=== PATIENT | female | born 1940 | race African-American/Black ===

== ENCOUNTER 2018-06-03 04:39 | Inpatient (IN) | payer MEDICARE, MEDICAID ==
[~2018-06-03] VITALS: Ht 167.6 cm; Wt 49.9 kg
[~2018-06-03 04:39] MED LIST: ASA; ATEN-42; CARB100C4 PO; COLC0.6T66; ESOM40CA; FURO40TA5; LOSA50TA20; METO2.5T14; POTA8CAP10; ROSU10TA; TRAM50TA3 PO; TRAV2.5D EACHEYE; ZET10
[2018-06-03 05:20] LABS: BASOPHILS % 1.6 % (0.0-2.0); EOSINOPHILS % 5.3 % (0.0-5.0); HEMATOCRIT. 42.8 % (36.0-48.0); HEMOGLOBIN. 13.1 g/dL (12.0-16.0); LYMPHOCYTES % 32.5 % (20.0-50.0); MEAN CORPUSCULAR HEMOGLOBIN 22.6 pg (28.0-32.0); MEAN CORPUSCULAR VOLUME 73.6 fL (81.0-99.0); MEAN PLATELET VOLUME 9.1 fl (7.4-10.4); NEUTROPHILS % 46.6 % (40.0-76.0); PLATELET 193 x1000/uL (130-400); RED BLOOD CELL COUNT 5.82 mill/uL (4.2-5.4); RED CELL DISTRIBUTION WIDTH 16.6 % (11.6-14.6)
[2018-06-03 05:23] LABS: CHLORIDE 109 mEq/L (98-107)
[2018-06-03 05:24] LABS: INR 1.1; PROTHROMBIN TIME 11.1 sec (9.1-11.1)
[2018-06-03] MEDS ORDERED: FUROSEMIDE 40MG/4ML VIAL IVP ONE (05:45)
[2018-06-03] MEDS ORDERED: NITROGLYCERIN OINT 1GM/INCH UDPKT TD ONE (05:45)
[2018-06-03] MEDS ORDERED: NITROGLYCERIN 0.4MG TABLET SL SL PRN (11:45)
[2018-06-03] MEDS ORDERED: ACETAMINOPHEN 325MG TABLET PO PRN (11:45)
[2018-06-03] MEDS ORDERED: TRAMADOL 50MG TABLET PO PRN (11:45)
[2018-06-03] MEDS ORDERED: DOCUSATE SODIUM 100MG CAPSULE PO PRN (11:45)
[2018-06-03] MEDS ORDERED: CLONIDINE 0.1MG TABLET PO PRN (11:45)
[2018-06-03] MEDS ORDERED: MAGNESIUM/ALUMINUM HYDROXIDE/SIMETHICONE 30ML UDC PO PRN (11:45)
[2018-06-03] MEDS ORDERED: IPRATROPIUM/ALBUTEROL 0.5-3(2.5)MG/3ML NEB INH PRN (11:45)
[2018-06-03] MEDS ORDERED: GUAIFENESIN 200MG/10ML SUGAR FREE UDC PO PRN (11:45)
[2018-06-03] MEDS ORDERED: ONDANSETRON HCL 4MG/2ML INJ IV PRN (11:45)
[2018-06-03] MEDS ORDERED: MORPHINE SULFATE 4 MG/ML CPJ (NOT FOR IM USE) IV PRN (12:15)
[2018-06-03] MEDS ORDERED: REGADENOSON 0.4 MG/5 ML IV ONE (12:15)
[2018-06-03] MEDS: ASPIRIN 325MG EC TABLET PO SCH (12:30)
[2018-06-03] MEDS: ENOXAPARIN 40MG/0.4ML SYR SUBCUT SCH (12:30)
[2018-06-03] MEDS: FAMOTIDINE 20MG TABLET PO SCH (12:30)
[2018-06-03] MEDS: CARVEDILOL 3.125 MG TABLET PO SCH (12:30)
[2018-06-03] MEDS: GUAIFENESIN/DM 600MG/30MG ER TAB 12HR PO SCH (12:30)
[2018-06-03] MEDS: LISINOPRIL 20MG TABLET PO SCH (12:30)
[2018-06-03] MEDS: NITROGLYCERIN OINT 1GM/INCH UDPKT TD SCH (14:42)
[2018-06-03 17:05] LABS: CREATINE KINASE MB FRACTION 4.3 ng/mL (0.5-3.6)
[2018-06-03] MEDS: FUROSEMIDE 40MG/4ML VIAL IVP SCH (18:56)
[2018-06-03] MEDS ORDERED: FAMOTIDINE 20MG TABLET PO SCH (21:00)
[2018-06-03] MEDS ORDERED: ZOLPIDEM TARTRATE 5MG TABLET PO PRN (21:00)
[2018-06-04 04:11] VITALS: BP 126/78
[2018-06-04 04:20] VITALS: BP 126/78
[2018-06-04 04:27] LABS: BASOPHILS % 1.3 % (0.0-2.0); EOSINOPHILS % 4.6 % (0.0-5.0); HEMATOCRIT. 42.9 % (36.0-48.0); HEMOGLOBIN. 13.6 g/dL (12.0-16.0); LYMPHOCYTES % 22.4 % (20.0-50.0); MEAN CORPUSCULAR HEMOGLOBIN 22.9 pg (28.0-32.0); MEAN CORPUSCULAR VOLUME 72.5 fL (81.0-99.0); MEAN PLATELET VOLUME 9.6 fl (7.4-10.4); MONOCYTES % 14.9 % (2.0-8.0); NEUTROPHILS % 56.8 % (40.0-76.0); PLATELET 202 x1000/uL (130-400); RED BLOOD CELL COUNT 5.91 mill/uL (4.2-5.4); RED CELL DISTRIBUTION WIDTH 16.1 % (11.6-14.6)
[2018-06-04 04:33] LABS: CHLORIDE 104 mEq/L (98-107)
[2018-06-04] MEDS ORDERED: ASPI-1158 PO (05:56)
[2018-06-04] MEDS: FUROSEMIDE 40MG/4ML VIAL IVP SCH ×2 (06:33→17:29)
[2018-06-04] MEDS: NITROGLYCERIN OINT 1GM/INCH UDPKT TD SCH (06:34)
[2018-06-04] MEDS: SPIRONOLACTONE 25MG TABLET PO SCH ×2 (06:37→17:29)
[2018-06-04 08:12] VITALS: BP 136/81
[2018-06-04] MEDS: ENOXAPARIN 40MG/0.4ML SYR SUBCUT SCH (08:56)
[2018-06-04] MEDS: ASPIRIN 325MG EC TABLET PO SCH (08:57)
[2018-06-04] MEDS: LISINOPRIL 20MG TABLET PO SCH ×2 (08:57→21:00)
[2018-06-04] MEDS: GUAIFENESIN/DM 600MG/30MG ER TAB 12HR PO SCH ×2 (08:57→21:02)
[2018-06-04] MEDS: FAMOTIDINE 20MG TABLET PO SCH (08:57)
[2018-06-04] MEDS: CARVEDILOL 3.125 MG TABLET PO SCH (08:58)
[2018-06-04] MEDS ORDERED: REGADENOSON 0.4 MG/5 ML IV ONE (11:20)
[2018-06-04 12:56] VITALS: BP 120/82
[2018-06-04] MEDS ORDERED: POTASSIUM CHLORIDE 20MEQ TABLET SR PO SCH (14:00)
[2018-06-04 16:15] VITALS: BP 120/64
[2018-06-04 19:39] VITALS: BP 94/54
[2018-06-04] MEDS: CARVEDILOL 6.25 MG TABLET PO SCH (21:00)
[2018-06-04] MEDS: ATORVASTATIN CALCIUM 20MG TABLET PO SCH (21:02)
[2018-06-05] VITALS: BP 128/70
[2018-06-05 04:00] VITALS: BP 121/71
[2018-06-05] MEDS: SPIRONOLACTONE 25MG TABLET PO SCH ×2 (06:06→19:42)
[2018-06-05] MEDS: FUROSEMIDE 40MG/4ML VIAL IVP SCH (06:06)
[2018-06-05 08:31] VITALS: BP 119/68
[2018-06-05] MEDS: CARVEDILOL 6.25 MG TABLET PO SCH ×2 (09:24→20:21)
[2018-06-05] MEDS: LISINOPRIL 20MG TABLET PO SCH ×2 (09:24→20:21)
[2018-06-05] MEDS: ASPIRIN 81MG EC TABLET PO SCH (09:25)
[2018-06-05] MEDS: FAMOTIDINE 20MG TABLET PO SCH (09:25)
[2018-06-05] MEDS: GUAIFENESIN/DM 600MG/30MG ER TAB 12HR PO SCH ×2 (09:27→20:21)
[2018-06-05] MEDS: ENOXAPARIN 40MG/0.4ML SYR SUBCUT SCH (09:27)
[2018-06-05 12:15] VITALS: BP 107/60
[2018-06-05] MEDS: POTASSIUM CHLORIDE 20MEQ TABLET SR PO SCH (15:21)
[2018-06-05 15:46] VITALS: BP 100/58
[2018-06-05 20:00] VITALS: BP 100/57
[2018-06-05] MEDS: FUROSEMIDE 40MG TABLET PO SCH (20:21)
[2018-06-05] MEDS: ATORVASTATIN CALCIUM 20MG TABLET PO SCH (20:21)
[2018-06-06] VITALS: BP 113/58
[2018-06-06 04:00] VITALS: BP 134/67
[2018-06-06] MEDS: SPIRONOLACTONE 25MG TABLET PO SCH (05:15)
[2018-06-06 08:00] VITALS: BP 124/67
[2018-06-06] MEDS: CARVEDILOL 6.25 MG TABLET PO SCH (09:00)
[2018-06-06] MEDS: LISINOPRIL 20MG TABLET PO SCH (09:00)
[2018-06-06] MEDS: FAMOTIDINE 20MG TABLET PO SCH (09:39)
[2018-06-06] MEDS: FUROSEMIDE 40MG TABLET PO SCH (09:39)
[2018-06-06] MEDS: ASPIRIN 81MG EC TABLET PO SCH (09:39)
[2018-06-06] MEDS: POTASSIUM CHLORIDE 20MEQ TABLET SR PO SCH (09:39)
[2018-06-06] MEDS: GUAIFENESIN/DM 600MG/30MG ER TAB 12HR PO SCH (09:39)
[2018-06-06] MEDS: ENOXAPARIN 40MG/0.4ML SYR SUBCUT SCH (09:40)
[2018-06-06 11:14] VITALS: BP 124/67
[2018-06-06 12:00] VITALS: BP 125/75
== END 2018-06-06 14:15 | disposition home health service (06) | DRG 292 ==
LOC: ER 04:39 → 6WST 05:56 → EDBEDREQTM 05:58 → EDBEDREQ 05:58 → SUPCPDRO 11:35 → ENRESERV 06-04 02:41 → CANRESERV 06-04 02:41 → ENRESERV 06-04 02:43
PROVIDERS: ADMIT Internal Medicine; ATTEND Internal Medicine
DX: I11.0 Hypertensive heart disease with heart failure (principal); I24.9 Acute ischemic heart disease, unspecified; I25.110 Atherosclerotic heart disease of native coronary artery with unstable angina pectoris; I50.43 Acute on chronic combined systolic (congestive) and diastolic (congestive) heart failure; E78.00 Pure hypercholesterolemia, unspecified; I44.7 Left bundle-branch block, unspecified; J44.9 Chronic obstructive pulmonary disease, unspecified; Z95.1 Presence of aortocoronary bypass graft; I25.2 Old myocardial infarction; Z98.41 Cataract extraction status, right eye; Z98.42 Cataract extraction status, left eye; Z90.710 Acquired absence of both cervix and uterus; Z88.1 Allergy status to other antibiotic agents
CPT/HCPCS: 36415; 71045; 78452; 80048; 80061; 82550; 82553; 83036; 83880; 84484; 86301; 93005; 93017; 93306; 93970; 96361; 96374; 96375; 97116; 97162; 97166; 99285; A9500; J1650; J1940; J2405; J2785

== ENCOUNTER → 2018-12-28 | Outpatient (CLI) | payer MEDICARE, MEDICAID ==
[~2018-12-28] MED LIST changes: +ASPI-1158 PO; +COR6 PO; +CRES10; +CYCL30DR EACHEYE; +EZET10TA13; -LOSA50TA20; +LOSA50TA41; +POTA20TA82 PO; -POTA8CAP10; +POTA8CAP20; +RANO500T6 PO; -ROSU10TA; +SACU1TAB MT; -ZET10
== END | disposition home or self-care (01) ==
LOC: MAMMO 09:05
PROVIDERS: ATTEND Internal Medicine
DX: Z12.31 Encounter for screening mammogram for malignant neoplasm of breast (principal)
CPT/HCPCS: 77067

== ENCOUNTER 2019-01-11 06:07 | Inpatient (IN) | payer MEDICARE, MEDICAID ==
[~2019-01-11] VITALS: Ht 167.6 cm; Wt 54.5 kg
[~2019-01-11 06:07] MED LIST changes: -COR6 PO; -CYCL30DR EACHEYE; -POTA20TA82 PO; -RANO500T6 PO; -SACU1TAB MT
[2019-01-11 11:20] LABS: HEMATOCRIT. 39.8 % (36.0-48.0); HEMOGLOBIN. 12.6 g/dL (12.0-16.0); MEAN CORPUSCULAR HEMOGLOBIN 23.6 pg (28.0-32.0); MEAN CORPUSCULAR VOLUME 74.3 fL (81.0-99.0); MEAN PLATELET VOLUME 8.9 fl (7.4-10.4); PLATELET 224 x1000/uL (130-400); RED BLOOD CELL COUNT 5.35 mill/uL (4.2-5.4)
[2019-01-11] MEDS ORDERED: POTA20TA82 PO (11:22)
[2019-01-11] MEDS ORDERED: RANO500T6 PO (11:22)
[2019-01-11] MEDS ORDERED: CYCL30DR EACHEYE (11:22)
[2019-01-11] MEDS ORDERED: COR6 PO (11:25)
[2019-01-11 11:28] LABS: PARTIAL THROMBOPLASTIN TIME 29.4 sec (23.4-31.0); PROTHROMBIN TIME 10.6 sec (9.6-11.0)
[2019-01-11] MEDS ORDERED: SODIUM CHLORIDE 0.9% 500 ML IV ONE (11:30)
[2019-01-11 11:31] LABS: CHLORIDE 107 mEq/L (98-107)
[2019-01-11] MEDS ORDERED: IODIXANOL 320MG/ML 100 ML BOTTLE IV ONE (12:09)
[2019-01-11] MEDS ORDERED: GENTAMICIN SULF 40MG/ML 2ML VIAL ONE (12:09)
[2019-01-11 12:10] LABS: PLATELET ESTIMATE NORMAL
[2019-01-11] MEDS ORDERED: GENTAMICIN/NS IRRIGATION 500 ML IR ONE (12:10)
[2019-01-11] MEDS ORDERED: LIDOCAINE HCL 1% 20ML VIAL (Pyxis) INJ ONE (12:10)
[2019-01-11] MEDS ORDERED: SODIUM CHLORIDE 0.9% 1,000 ML IV ONE (15:32)
[2019-01-11] MEDS ORDERED: HYDROMORPHONE HCL/PF 2MG/ML CPJ IV PRN (15:45)
[2019-01-11] MEDS ORDERED: MORPHINE SULFATE 2 MG/ML CPJ (NOT FOR IM USE) IV PRN (15:45)
[2019-01-11] MEDS ORDERED: ONDANSETRON HCL 4MG/2ML INJ IV PRN (15:45)
[2019-01-11] MEDS ORDERED: MEPERIDINE HCL/PF 25MG/ML CPJ IV PRN ×2 (15:45)
[2019-01-11 17:00] VITALS: BP_SYST 134; BP_SYST 137; BP_DIAS 58; BP_DIAS 65
[2019-01-11] MEDS ORDERED: SACU1TAB MT (17:48)
[2019-01-11 18:00] VITALS: BP 135/72
[2019-01-11 20:00] VITALS: BP 143/84
[2019-01-11] MEDS ORDERED: PNEUMOCOCCAL 23-VAL P-SAC VAC 0.5 ML IM ONE (20:30)
[2019-01-11 21:00] VITALS: BP 150/73
[2019-01-11 22:00] VITALS: BP 141/60
[2019-01-11 23:00] VITALS: BP 158/75
[2019-01-12] VITALS (14 sets, daily range): BP systolic 127–150; BP diastolic 60–82
[2019-01-12 06:44] LABS: BASOPHILS % 0.6 % (0.0-2.0); HEMATOCRIT. 40.2 % (36.0-48.0); HEMOGLOBIN. 12.7 g/dL (12.0-16.0); LYMPHOCYTES % 12.8 % (20.0-50.0); MEAN CORPUSCULAR HEMOGLOBIN 23.8 pg (28.0-32.0); MEAN CORPUSCULAR VOLUME 75.3 fL (81.0-99.0); MEAN PLATELET VOLUME 9.3 fl (7.4-10.4); MONOCYTES % 12.8 % (2.0-8.0); NEUTROPHILS % 72.8 % (40.0-76.0); PLATELET 205 x1000/uL (130-400); RED BLOOD CELL COUNT 5.34 mill/uL (4.2-5.4); RED CELL DISTRIBUTION WIDTH 17.7 % (11.6-14.6)
[2019-01-12 06:54] LABS: CHLORIDE 108 mEq/L (98-107)
[2019-01-12] MEDS: ASPIRIN 81MG EC TABLET PO SCH (09:29)
[2019-01-12] MEDS: POTASSIUM CHLORIDE 20MEQ TABLET SR PO SCH (09:29)
[2019-01-12] MEDS: CARVEDILOL 6.25 MG TABLET PO SCH (09:29)
[2019-01-12] MEDS: RANOLAZINE 500 MG TAB.SR.12H PO SCH (09:30)
[2019-01-12] MEDS: FUROSEMIDE 40MG TABLET PO SCH (09:30)
[2019-01-12] MEDS: HYDROCODONE/ACETAMINOPHEN 5/325MG TABLET PO PRN (09:31)
[2019-01-12] MEDS: CEFAZOLIN 1000MG PREMIX 50 ML IV SCH (23:06)
[2019-01-13 02:00] VITALS: BP 148/77
[2019-01-13 03:39] VITALS: BP 147/68
[2019-01-13 05:32] VITALS: BP 156/75
[2019-01-13] MEDS: CEFAZOLIN 1000MG PREMIX 50 ML IV SCH (06:06)
[2019-01-13] MEDS: HYDROCODONE/ACETAMINOPHEN 5/325MG TABLET PO PRN (06:15)
[2019-01-13 06:22] VITALS: BP 149/69
[2019-01-13 08:09] VITALS: BP 147/95
[2019-01-13] MEDS: FUROSEMIDE 40MG TABLET PO SCH (08:11)
[2019-01-13] MEDS: RANOLAZINE 500 MG TAB.SR.12H PO SCH (08:11)
[2019-01-13] MEDS: POTASSIUM CHLORIDE 20MEQ TABLET SR PO SCH (08:12)
[2019-01-13] MEDS: ASPIRIN 81MG EC TABLET PO SCH (08:12)
[2019-01-13] MEDS: CARVEDILOL 6.25 MG TABLET PO SCH (08:12)
[2019-01-13 08:52] VITALS: BP 154/84
== END 2019-01-13 09:30 | disposition home or self-care (01) | DRG 225 ==
LOC: CCL 06:07 → 3WST 06:08
PROVIDERS: ADMIT Internal Medicine Clinical Cardiac Electrophysiology; ATTEND Internal Medicine Clinical Cardiac Electrophysiology
PROC: B517YZA Fluoroscopy of Left Subclavian Vein using Other Contrast, Guidance (ICD-10-PCS; principal; 2019-01-11)
PROC: 0JH609Z Insertion of Cardiac Resynchronization Defibrillator Pulse Generator into Chest Subcutaneous Tissue and Fascia, Open Approach (ICD-10-PCS; 2019-01-11)
PROC: 02HK3KZ Insertion of Defibrillator Lead into Right Ventricle, Percutaneous Approach (ICD-10-PCS; 2019-01-11)
PROC: 4A023N7 Measurement of Cardiac Sampling and Pressure, Left Heart, Percutaneous Approach (ICD-10-PCS; 2019-01-11)
PROC: 02H63KZ Insertion of Defibrillator Lead into Right Atrium, Percutaneous Approach (ICD-10-PCS; 2019-01-11)
PROC: B211YZZ Fluoroscopy of Multiple Coronary Arteries using Other Contrast (ICD-10-PCS; 2019-01-11)
DX: I44.7 Left bundle-branch block, unspecified (principal); I50.22 Chronic systolic (congestive) heart failure; I25.5 Ischemic cardiomyopathy; E78.5 Hyperlipidemia, unspecified; I11.0 Hypertensive heart disease with heart failure; I25.10 Atherosclerotic heart disease of native coronary artery without angina pectoris; M19.90 Unspecified osteoarthritis, unspecified site; I25.2 Old myocardial infarction; Z86.73 Personal history of transient ischemic attack (TIA), and cerebral infarction without residual deficits
CPT/HCPCS: 33225; 33249; 36415; 71045; 75820; 80048; 90732; 93005; 93451; 93641; A4565; C1758; C1769; C1882; C1887; C1892; C1893; C1898; C1899; C1900; J0330; J0690; J1580; J1644; J2250; J2405; J2704; J2710; J2765; J3490; J7040; Q9967

== ENCOUNTER 2020-07-15 15:29 | Inpatient (IN) | payer MEDICARE, MEDICAID ==
[~2020-07-15] VITALS: Ht 167.6 cm; Wt 63.5 kg
[~2020-07-15 15:29] MED LIST changes: -ASA; -ASPI-1158 PO; +ASPI-1406 PO; -ATEN-42; -CARB100C4 PO; -COLC0.6T66; +COR6 PO; -CRES10; +CYCL30DR EACHEYE; -ESOM40CA; -EZET10TA13; -LOSA50TA41; -METO2.5T14; +POTA20TA82 PO; -POTA8CAP20; +RANO500T6 PO; +SACU1TAB MT
[2020-07-15] MEDS ORDERED: ONDANSETRON HCL 4MG/2ML INJ IV ONE (17:00)
[2020-07-15] MEDS ORDERED: MORPHINE SULFATE 4 MG/ML CPJ (NOT FOR IM USE) IV ONE (17:00)
[2020-07-15 17:24] LABS: BASOPHILS % 0.5 % (0.0-2.0); EOSINOPHILS % 2.5 % (0.0-5.0); HEMATOCRIT. 40.9 % (36.0-48.0); HEMOGLOBIN. 12.9 g/dL (12.0-16.0); MEAN CORPUSCULAR HEMOGLOBIN 23.8 pg (28.0-32.0); MEAN CORPUSCULAR VOLUME 75.2 fL (81.0-99.0); MEAN PLATELET VOLUME 8.7 fl (7.4-10.4); MONOCYTES % 10.3 % (2.0-8.0); NEUTROPHILS % 69.7 % (40.0-76.0); PLATELET 178 x1000/uL (130-400); RED BLOOD CELL COUNT 5.45 mill/uL (4.2-5.4)
[2020-07-15 17:34] LABS: CHLORIDE 102 mEq/L (98-107)
[2020-07-15 18:10] LABS: INR 1.1; PROTHROMBIN TIME 11.9 sec (9.6-11.0)
[2020-07-15] MEDS ORDERED: MORPHINE SULFATE 2 MG/ML CPJ (NOT FOR IM USE) IV NR (20:15)
[2020-07-15 20:42] LABS: CLARITY URINE CLEAR (CLEAR); COLOR URINE DARK YELLOW (YELLOW); KETONES URINE 2+ (NEGATIVE); LEUKOCYTE ESTERASE URINE NEGATIVE (NEGATIVE); NITRITE URINE NEGATIVE (NEGATIVE); OCCULT BLOOD URINE NEGATIVE (NEGATIVE); PH URINE 5.5 (4.5-8.0); PROTEIN URINE TRACE (NEGATIVE); SPECIFIC GRAVITY URINE 1.016 (1.005-1.030)
[2020-07-16] VITALS (7 sets, daily range): BP systolic 92–142; BP diastolic 55–96
[2020-07-16] MEDS ORDERED: ONDANSETRON HCL 4MG/2ML INJ IV PRN
[2020-07-16] MEDS ORDERED: MORPHINE SULFATE 2 MG/ML CPJ (NOT FOR IM USE) IV PRN
[2020-07-16] MEDS: DEXT 5%/0.45% NACL KCL 20MEQ/L 1,000 ML IV SCH ×3 (03:41→21:11)
[2020-07-16] MEDS: PIPERACILLIN/TAZOBACTAM 3.375 G in DEXT 5% WATER 100 ML IV SCH ×3 (05:34→21:08)
[2020-07-16] MEDS ORDERED: PIPERACILLIN/TAZOBACTAM 3.375 G/VIAL IV SCH (06:00)
[2020-07-16] MEDS: CARVEDILOL 3.125 MG TABLET PO SCH ×2 (10:19→20:45)
[2020-07-16] MEDS: LISINOPRIL 20MG TABLET PO SCH (10:19)
[2020-07-16] MEDS: PANTOPRAZOLE SODIUM 40 MG/VIAL IV SCH (10:20)
[2020-07-16] MEDS: ASPIRIN 81MG TABLET PO SCH (10:20)
[2020-07-16] MEDS: ENOXAPARIN 40MG/0.4ML SYR SUBCUT SCH (10:21)
[2020-07-16] MEDS ORDERED: HYDROCODONE/ACETAMINOPHEN 5/325MG TABLET PO PRN (12:00)
[2020-07-17 04:00] VITALS: BP 103/53
[2020-07-17] MEDS: PIPERACILLIN/TAZOBACTAM 3.375 G in DEXT 5% WATER 100 ML IV SCH ×3 (05:19→21:23)
[2020-07-17 06:45] LABS: BASOPHILS % 0.4 % (0.0-2.0); EOSINOPHILS % 3.6 % (0.0-5.0); HEMATOCRIT. 33.9 % (36.0-48.0); HEMOGLOBIN. 10.7 g/dL (12.0-16.0); LYMPHOCYTES % 13.8 % (20.0-50.0); MEAN CORPUSCULAR HEMOGLOBIN 23.5 pg (28.0-32.0); MEAN CORPUSCULAR VOLUME 74.4 fL (81.0-99.0); MEAN PLATELET VOLUME 9.1 fl (7.4-10.4); MONOCYTES % 14.7 % (2.0-8.0); NEUTROPHILS % 67.5 % (40.0-76.0); PLATELET 193 x1000/uL (130-400); RED BLOOD CELL COUNT 4.55 mill/uL (4.2-5.4); RED CELL DISTRIBUTION WIDTH 16.7 % (11.6-14.6)
[2020-07-17 06:53] LABS: CHLORIDE 104 mEq/L (98-107)
[2020-07-17 08:00] VITALS: BP 103/58
[2020-07-17] MEDS: CARVEDILOL 3.125 MG TABLET PO SCH ×2 (09:00→21:23)
[2020-07-17] MEDS: LISINOPRIL 20MG TABLET PO SCH ×2 (09:00→09:50)
[2020-07-17] MEDS: PANTOPRAZOLE SODIUM 40 MG/VIAL IV SCH (09:42)
[2020-07-17] MEDS: ASPIRIN 81MG TABLET PO SCH (09:42)
[2020-07-17] MEDS: DEXT 5%/0.45% NACL KCL 20MEQ/L 1,000 ML IV SCH ×2 (09:42→18:21)
[2020-07-17] MEDS: ENOXAPARIN 40MG/0.4ML SYR SUBCUT SCH (09:52)
[2020-07-17 12:00] VITALS: BP 105/54
[2020-07-17 16:00] VITALS: BP 141/69
[2020-07-17 20:00] VITALS: BP 144/70
[2020-07-18] VITALS (7 sets, daily range): BP systolic 97–143; BP diastolic 50–86
[2020-07-18] MEDS: DEXT 5%/0.45% NACL KCL 20MEQ/L 1,000 ML IV SCH ×2 (02:19→15:54)
[2020-07-18] MEDS: PIPERACILLIN/TAZOBACTAM 3.375 G in DEXT 5% WATER 100 ML IV SCH ×2 (06:09→15:52)
[2020-07-18] MEDS: ASPIRIN 81MG TABLET PO SCH (09:20)
[2020-07-18] MEDS: LISINOPRIL 20MG TABLET PO SCH (09:21)
[2020-07-18] MEDS: PANTOPRAZOLE SODIUM 40 MG/VIAL IV SCH (09:21)
[2020-07-18] MEDS: CARVEDILOL 3.125 MG TABLET PO SCH (09:21)
[2020-07-18] MEDS: ENOXAPARIN 40MG/0.4ML SYR SUBCUT SCH (09:22)
[2020-07-19] MEDS ORDERED: FAMOTIDINE 20MG/2ML VIAL IV SCH (09:00)
== END 2020-07-18 20:55 | disposition home health service (06) | DRG 445 ==
LOC: ER 15:29 → 6WST 20:11 → EDBEDREQTM 20:15 → EDBEDREQ 20:15 → EDBEDREQSVC 20:15 → EDBEDREQTM 21:30 → EDBEDREQSVC 21:30 → EDBEDREQTM 21:40 → ENRESERV 22:19
PROVIDERS: ADMIT Internal Medicine; ATTEND Internal Medicine
DX: K80.00 Calculus of gallbladder with acute cholecystitis without obstruction (principal); E44.0 Moderate protein-calorie malnutrition; E87.1 Hypo-osmolality and hyponatremia; I50.22 Chronic systolic (congestive) heart failure; R18.8 Other ascites; I43 Cardiomyopathy in diseases classified elsewhere; E11.9 Type 2 diabetes mellitus without complications; R74.01 Elevation of levels of liver transaminase levels; I11.0 Hypertensive heart disease with heart failure; I25.10 Atherosclerotic heart disease of native coronary artery without angina pectoris; J44.9 Chronic obstructive pulmonary disease, unspecified; Z82.49 Family history of ischemic heart disease and other diseases of the circulatory system; Z95.810 Presence of automatic (implantable) cardiac defibrillator; Z83.3 Family history of diabetes mellitus; Z95.1 Presence of aortocoronary bypass graft; Z68.22 Body mass index [BMI] 22.0-22.9, adult; Z88.2 Allergy status to sulfonamides; Z88.8 Allergy status to other drugs, medicaments and biological substances; Z98.890 Other specified postprocedural states
CPT/HCPCS: 36415; 71045; 74176; 76705; 80048; 80053; 81003; 83605; 84145; 85025; 93005; 93306; 97116; 97162; 99285; C9113; J1650; J2270; J2405; J2543; J7060

== ENCOUNTER → 2020-10-20 | Outpatient (CLI) | payer MEDICARE, MEDICAID ==
[~2020-10-20] MED LIST changes: -TRAV2.5D EACHEYE; +TRAV2.5D9 EACHEYE
== END | disposition home or self-care (01) ==
LOC: US 07:39
PROVIDERS: ATTEND Internal Medicine
DX: K80.80 Other cholelithiasis without obstruction (principal); K82.8 Other specified diseases of gallbladder; N27.0 Small kidney, unilateral; K76.89 Other specified diseases of liver
CPT/HCPCS: 76700

== ENCOUNTER → 2020-12-25 | Outpatient (CLI) | payer MEDICARE, MEDICAID ==
[~2020-12-25] MED LIST changes: +BARIUM SULFATE 450ML ORAL SUSP ONE; +IOHEXOL-300 100 ML BOTTLE ONE
== END | disposition home or self-care (01) ==
LOC: CT 08:21
PROVIDERS: ATTEND Internal Medicine Gastroenterology
DX: K80.20 Calculus of gallbladder without cholecystitis without obstruction (principal); K44.9 Diaphragmatic hernia without obstruction or gangrene; I51.7 Cardiomegaly; K66.8 Other specified disorders of peritoneum; I70.0 Atherosclerosis of aorta; M47.819 Spondylosis without myelopathy or radiculopathy, site unspecified; K82.8 Other specified diseases of gallbladder; J94.8 Other specified pleural conditions; J98.11 Atelectasis
CPT/HCPCS: 74177; Q9967

== ENCOUNTER → 2021-01-05 | Outpatient (CLI) | payer MEDICARE, MEDICAID ==
[~2021-01-05] MED LIST changes: -BARIUM SULFATE 450ML ORAL SUSP ONE; -IOHEXOL-300 100 ML BOTTLE ONE
== END | disposition home or self-care (01) ==
LOC: US 08:20
PROVIDERS: ATTEND Internal Medicine Gastroenterology
DX: K82.8 Other specified diseases of gallbladder (principal); K80.20 Calculus of gallbladder without cholecystitis without obstruction; N26.1 Atrophy of kidney (terminal); R10.9 Unspecified abdominal pain
CPT/HCPCS: 76700